=== PATIENT | male | born 1970 | race American Indian/Alaskan Native ===

== ENCOUNTER 2017-04-22 21:11 | Emergency (ER) | payer MEDICAID ==
[2017-04-22 21:11] VITALS: BMI 21.9
[2017-04-22 21:22] VITALS: BP 144/92; PULSE 65; RESP 16; TEMP 98.5; O2SAT 98
[2017-04-22 22:39] LABS: RBC URINE 3 /hpf (0-3); URINE BACTERIA RARE (<OCC); URINE BILIRUBIN NEGATIVE (NEGATIVE); URINE BLOOD NEGATIVE (NEGATIVE); URINE COLOR YELLOW (YELLOW); URINE GLUCOSE (UA) NEG (Normal); URINE KETONE NEGATIVE (NEGATIVE); URINE LEUKOCYTE ESTERASE TRACE Leu/uL (Negative); URINE PROTEIN 30 mg/dL (NEGATIVE); WBC URINE 16 /hpf (0-5)
--- NOTE | 2017-04-22 22:41 | ED PDOC ---
HPI: Male Pain Time Seen by Provider: 04/22/17 21:33 Chief Complaint (Nursing): Male Genitourinary Chief Complaint (Provider): testicular pain History Per: Patient History/Exam Limitations: no limitations Additional Complaint(s): 46yo M in ED for eval of testicular pain-Pt is transgender and has been taking hormones since 1994. Pt in ED states that he has been having testicular pain x " a while" but today the pain has been constant unrelieved with use of alieve. denies dysuria,hematuria, lesions, swelling to penis or abd pain, nausea or vomiting, denies fever. denies durect injury to scrotum Past Medical History Reviewed: Historical Data, Nursing Documentation, Vital Signs Vital Signs: Last Vital Signs Temp 98.5 F 04/22/17 21:20 Pulse 65 04/22/17 21:20 Resp 16 04/22/17 21:20 BP 144/92 H 04/22/17 21:20 Pulse Ox 98 04/22/17 21:20 - Medical History PMH: Anemia, HIV, Sexually Transmitted Disease (HIV) Denies: Chronic Kidney Disease - Family History Family History: States: Unknown Family Hx - Home Medications Home Medications: Ambulatory Orders Medication Instructions Recorded Estradiol 2 mg PO BID 06/03/14 Darunavir [Prezista] 800 mg PO DAILY 09/06/15 Emtricita/rilpivir/tenofovir 1 tab PO DAILY 09/06/15 [Complera 200 mg-25 mg-300 mg] Ritonavir [Norvir] 100 mg PO DAILY 09/06/15 Ferrous Sulfate [Feosol] 324 mg PO BID #0 ect 09/07/15 Nicotine 21 mg/24 hr [Nicoderm Cq] 1 patch TOP DAILY 10/15/16 Ciprofloxacin HCl [Cipro] 500 mg PO BID #20 tablet 10/17/16 Lidocaine 5% [Lidoderm] 2 ea TD DAILY #30 patch 10/17/16 Metronidazole [Flagyl] 500 mg PO TID #30 tablet 10/17/16 Azithromycin [Zithromax] 1,000 mg PO ONCE #4 tab 04/22/17 Doxycycline Monohydrate 100 mg PO BID #28 capsule 04/22/17 - Allergies Allergies/Adverse Reactions: Allergies Allergy/AdvReac Type Severity Reaction Status Date / Time No Known Allergies Allergy Verified 10/14/16 23:30 Review of Systems ROS Statement: Except As Marked, All Systems Reviewed And Found Negative Constitutional: Negative for: Fever, Chills Genitourinary Male: Positive for: Scrotal Pain. Negative for: Dysuria, Hematuria, Penile Discharge, Penile Pain Physical Exam - Reviewed Nursing Documentation Reviewed: Yes Vital Signs Reviewed: Yes - Physical Exam Appears: Positive for: Well, Non-toxic, No Acute Distress Skin: Positive for: Normal Color, Warm, DRY Cardiovascular/Chest: Positive for: Regular Rate, Rhythm Respiratory: Positive for: CNT, Normal Breath Sounds Gastrointestinal/Abdominal: Positive for: Normal Exam, Bowel Sounds, Soft. Negative for: Tenderness Male Genital Exam: Positive for: no hernia, epididymal tenderness, scrotum tenderness (R), scrotum tenderness (L), testicular tenderness (R), testicular tenderness (L). Negative for: bleeding, erythema, hernia mass, inguinal tenderness, lesions, urethral discharge Back: Negative for: L CVA Tenderness, R CVA Tenderness Extremity: Positive for: Normal ROM Neurologic/Psych: Positive for: Alert, Oriented - ECG O2 Sat by Pulse Oximetry: 98 - Progress ED Course And Treament: Pt will get US of testis GC RNA testing and UA US hosws: FINDINGS: Right testicle: No mass. No torsion. Left testicle: No mass. No torsion. Epididymides: Epididymal cysts. Heterogeneous, enlarged, hypervascular tail of RIGHT epididymis. Heterogeneous, enlarged, hypervascular tail of LEFT epididymis. Scrotum: Unremarkable. IMPRESSION: 1. Findings suggestive of bilateral epididymitis. Clinical correlation and follow up are recommended. 2. Incidental/non-acute findings are described above. Thank you for allowing us to participate in the care of your patient. Dictated and Authenticated by: Irving Gaspar MD 04/22/2017 11:02 PM Eastern Time ([place] & [place]) Pt will get Roc[place] IV Medical Decision Making Medical Decision Making: dx: epididymitis. PT given Rocphin in ED and d./c with doxycycline and azithromycin. CG testing sent advised to abstain from sexual intercourse. Disposition - Clinical Impression Clinical Impression: Epididymitis - Patient ED Disposition Is Patient to be Admitted: No Counseled Patient/Family Regarding: Studies Performed, Diagnosis, Need For Followup, Rx Given - Disposition Referrals: [facility] [Outside] [facility] [Provider Group] [facility] [Provider Group] [facility] [Provider Group] Disposition: Routine/Home Disposition Time: 23:20 Condition: STABLE Prescriptions: Azithromycin [Zithromax] 1,000 mg PO ONCE #4 tab Doxycycline Monohydrate 100 mg PO BID #28 capsule Forms: [employer] (Macedonian)
--- NOTE | 2017-04-22 23:03 | US ---
EXAM: US Scrotum CLINICAL HISTORY: 46 years old, male; Pain; Scrotum pain; Additional info: Severe pain TECHNIQUE: Real-time ultrasound of the scrotum with color Doppler and image documentation. COMPARISON: No relevant prior studies available. FINDINGS: Right testicle: No mass. No torsion. Left testicle: No mass. No torsion. Epididymides: Epididymal cysts. Heterogeneous, enlarged, hypervascular tail of RIGHT epididymis. Heterogeneous, enlarged, hypervascular tail of LEFT epididymis. Scrotum: Unremarkable. IMPRESSION: 1. Findings suggestive of bilateral epididymitis. Clinical correlation and follow up are recommended. 2. Incidental/non-acute findings are described above.
[2017-04-22] MEDS ORDERED: cefTRIAXone (Rocephin) 1 gm Inj ONE (23:30)
[2017-04-22 23:39] LABS: BASO # 0.1 K/uL (0.0-0.2); BASO % 1.3 % (0.0-2.0); EOS % 0.5 % (0.0-4.0); HEMATOCRIT 28.9 % (35.0-51.0); LYMPH % 30.3 % (20.0-40.0); MEAN CELL VOLUME 70.5 fl (80.0-94.0); MEAN CORPUSCULAR HEMOGLOBIN 21.6 pg (27.0-31.0); MEAN CORPUSCULAR HGB CONC 30.6 g/dL (33.0-37.0); MEAN PLATELET VOLUME 8.9 fl (7.2-11.7); MONO # 0.6 K/uL (0.0-0.8); MONO % 9.3 % (0.0-10.0); NEUT # 3.9 K/uL (1.8-7.0); NEUT % 58.6 % (50.0-75.0); WHITE BLOOD COUNT 6.7 K/uL (4.8-10.8)
[2017-04-22 23:49] LABS: ALB/GLOB RATIO 1.2 (1.0-2.1); ALKALINE PHOSPHATASE 37 U/L (38-126); ALT/SGPT 32 U/L (21-72); AST/SGOT 36 U/L (17-59); BILIRUBIN,TOTAL 0.3 mg/dl (0.2-1.3); BLOOD UREA NITROGEN 16 mg/dl (9-20); CALCIUM 8.8 mg/dL (8.4-10.2); CARBON DIOXIDE 23 mmol/L (22-30); CHLORIDE 105 mmol/L (98-107); GFR AFRICAN-AMERICAN > 60; GLUCOSE,RANDOM 84 mg/dL (75-110); POTASSIUM 4.4 MMOL/L (3.6-5.0); SODIUM 134 mmol/l (132-148); TOTAL PROTEIN 6.5 G/DL (6.3-8.2)
== END 2017-04-23 00:43 | disposition home or self-care (01) ==
LOC: H.ER 21:11
DX: N45.1 Epididymitis (principal); D64.9 Anemia, unspecified